=== PATIENT | male | born 1975 | race Caucasian/White ===

== ENCOUNTER 2016-05-17 22:26 | Emergency (ER) | payer OTHER ==
[~2016-05-17] VITALS: Ht 175.3 cm; Wt 79.4 kg
[2016-05-17 22:28] VITALS: BP 123/78; PULSE 80; RESP 20; TEMP 97.4; O2SAT 95
[2016-05-17] MEDS ORDERED: DEXAMETHASONE SOD PHOSPHATE 10 MG/ML VIAL IM ONE (22:45)
[2016-05-17] MEDS ORDERED: IPRATROPIUM/ALBUTEROL SULFATE 3 ML AMPUL.NEB INH ONE (22:45)
[2016-05-17 23:29] VITALS: BP 121/76; PULSE 83; RESP 18; TEMP 97.4; O2SAT 95
== END 2016-05-17 23:29 | disposition home or self-care (01) ==
LOC: SED 22:26
DX: J68.0 Bronchitis and pneumonitis due to chemicals, gases, fumes and vapors (principal); R03.0 Elevated blood-pressure reading, without diagnosis of hypertension
CPT/HCPCS: 71010; 94640; 96372; 99283; J1100